=== PATIENT | male | born 1960 | race Caucasian/White ===

== ENCOUNTER 2018-11-03 16:56 | Emergency (ER) | payer OTHER, SELFPAY ==
[2018-11-03 17:02] VITALS: BP 142/89; PULSE 74; RESP 16; TEMP 37; O2SAT 96
--- NOTE | 2018-11-03 17:18 | ED.GENADUL_ITS ---
Discharge Plan Disposition Patient Disposition: HOME Condition: Stable Discharge Details Chief Complaint: Orthopedic Clinical Impression: Left knee sprain Primary Care Provider: Bianca,Local ED Provider: Naya Keita Home Meds and New Rx's Prescriptions: No Action esomeprazole magnesium [Nexium] 20 mg Capsule,Delayed Release(Dr/Ec) 20 mg PO DAILY RF: 0 Discharge Instructions Instructions: Knee Sprain (ED) Additional Instructions: Rest, ice, elevate left knee is much as possible. Alternate Tylenol and Motrin as needed and directed for pain. If your pain persists or worsens, follow-up with your orthopedist in your home. Return to the emergency department any time with any acute worsening or new concerning symptoms. Discharge Data Discharge Date/Time-TO BE ENTERED AT DEPARTURE: 11/03/18 19:01 Discharge Physician: Naya Keita Medical Decision Making 58-year-old male who presents with left knee pain after twisting injury blunt trauma to knee while skiing. Difficulty with ambulating due to pain. Patient has some laxity noted with valgus stress but no pain. He has pain with anterior and posterior drawer test but no ligamentous laxity. No obvious effusion or ecchymosis noted to knee. Neurovascularly intact. Normal range of motion at left hip. Will give a dose of ibuprofen and obtain left knee x-ray. 1899 --x-ray negative. Patient given Rakan wrap and crutches. Patient is visiting from [place] but is here for the next 2 days. He is instructed on the importance of rest, ice, elevate, Motrin and Tylenol. He is instructed to follow-up with orthopedics in [place] if his pain does not improve or worsens. He is instructed to return here at any time with any concerns. Medical Records Medical records reviewed: Yes I reviewed the patient's medical records. 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 Soft tissues: There are calcifications or ossification within the tendons inserting on the superior and inferior poles of the patella consistent with enthesopathy. IMPRESSION: No acute findings. HPI General Mode of arrival: ambulatory . Date/Time Provider Initiated Documentation: 11/03/18 17:09 . Limitations to Documentation: no limitations . Information obtained by: patient . HPI Narrative: Patient is a 58-year-old male who presents with left knee pain after twisting and falling while skiing earlier today. Patient states he was skating when he hit a tree with his left ski in his left leg twisted backwards. He thinks his left knee may have also hit the tree. He states he has been unable to bear weight on his left leg since then due to pain. He took ibuprofen earlier this morning but none since then. He denies any hip pain, back pain or any other injuries. Related Data Home Medications Medication Instructions Recorded Confirmed esomeprazole magnesium [Nexium] 20 mg PO DAILY 11/03/18 11/03/18 Allergies Allergy/AdvReac Type Severity Reaction Status Date / Time No Known Allergies Allergy Unverified 11/03/18 17:07 General Stated Complaint: Orthopedic DIANE: 4 Review of Systems Review of Systems All systems reviewed & are unremarkable except as noted in HPI and below PFSH Medical History No significant past medical history (Acute) Surgical History No significant past surgical history (Acute) Social History Smoking/Tobacco Use Status: Never alcohol intake: current alcohol intake frequency: a few times a month substance use type: does not use Exam Const General: cooperative, healthy appearing and no acute distress HENMT Head: normal to inspection Mouth: oral mucosae normal Eyes General: appearance normal, both eyes and all related structures Neck Neck: normal visual inspection Resp Effort & Inspection: normal respiratory effort and able to speak in complete sentences Cardio Rate: regular rate Skin General skin exam: no rashes or lesions noted Neuro General: alert, awake and oriented x3 Motor: muscle tone normal throughout Extrem Left lower extremity: hip/thigh Details: normal to inspection and normal ROM; no tenderness and no lacerations, knee Details: normal to inspection, tenderness Location: of the popliteal fossa; not of the patella, abnormal ROM Details: pain with active ROM Details: with extension and with flexion and pain with passive ROM Details: with extension and with flexion and knee ligament exam abnormal Details: anterior drawer test Details: pain noted, posterior drawer test Details: pain noted, valgus stress test Details: laxity noted and varus stress test; no swelling, lower leg Details: normal to inspection; no erythema and no tenderness, ankle Details: normal to inspection; no tenderness and no swelling and foot Details: vascular exam Details: dorsalis pedis pulse present and posterior tibial pulse present Psych Appearance: grossly normal Affect: normal affect Course Vital Signs Temperature 98.6 F 11/03/18 17:02 Pulse 74 11/03/18 17:02 Respiratory Rate 16 11/03/18 17:02 Blood Pressure 142/89 H 11/03/18 17:02 Pulse Oximetry 96 11/03/18 17:02 Temperature 98.6 F 11/03/18 17:02 Temperature Source Temporal Artery Scan 11/03/18 17:02 Pulse 74 11/03/18 17:02 Respiratory Rate 16 11/03/18 17:02 Respiratory Effort 11/03/18 17:02 Blood Pressure 142/89 H 11/03/18 17:02 Blood Pressure Position Sitting 11/03/18 17:02 Pulse Oximetry 96 11/03/18 17:02 Oxygen Delivery Method Room Air 11/03/18 17:02 Oxygen Flow Rate 0 11/03/18 17:02 Pain Level 4 11/03/18 17:02
[2018-11-03] MEDS: Ibuprofen 600 MG TAB PO (17:30)
--- NOTE | 2018-11-03 17:50 | DI.RAD_ITS ---
SYMPTOM/DIAGNOSIS: S/P TWISTING INJURY SKIING, PAIN, ? acute fx or effusion LEFT KNEE: Four views. No priors for comparison. No acute fracture or dislocation is seen. There are enthesophytes seen at the superior and inferior aspect of the patella. Well corticated osseous fragments are seen in the anterior knee which appear old. There is thickening and sclerosis eccentrically in the proximal metadiaphyseal region of the left tibia. This may represent a non ossified or ossifying fibroma. Fibrous dysplasia cannot be excluded. IMPRESSION: No acute fracture or dislocation.
--- NOTE | 2018-11-03 18:03 | DI.VRAD_ITS ---
EXAM: XR Left Knee, 4 or more Views EXAM DATE/TIME: 11/03/2018 5:18 PM CLINICAL HISTORY: 58 years old, male; Signs and symptoms; Other: S/P twisting injury skiing, R/O acute fx/effusion TECHNIQUE: XR Left knee 4 or more views. COMPARISON: No relevant prior studies available. 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 Soft tissues: There are calcifications or ossification within the tendons inserting on the superior and inferior poles of the patella consistent with enthesopathy. IMPRESSION: No acute findings. Dictated and Authenticated by: Srinath Schmid MD. Ordering:MARCO Person MD
[2018-11-03 18:59] VITALS: BP 142/89; PULSE 74; RESP 16; O2SAT 96
== END 2018-11-03 19:01 | disposition home or self-care (01) ==
PROVIDERS: Emergency Provider Physician Assistant
DX: S83.92XA Sprain of unspecified site of left knee, initial encounter (principal); V00.322A Snow-skier colliding with stationary object, initial encounter; X50.9XXA Other and unspecified overexertion or strenuous movements or postures, initial encounter; Y93.23 Activity, snow (alpine) (downhill) skiing, snowboarding, sledding, tobogganing and snow tubing
CPT/HCPCS: 99283; 73564; E0114